=== PATIENT | female | born 1980 | race Caucasian/White ===

== ENCOUNTER 2017-03-27 06:30 | Inpatient (IN) | payer OTHER ==
[2017-03-27] MEDS: ELECTROLYTE-148 SOLN 1,000 ML IV SCH (07:00)
[2017-03-27] MEDS ORDERED: CITRIC ACID/SODIUM CITRATE 30 ML UNIT-DOSE CUP PO ONE (07:00)
[2017-03-27 07:51] LABS: MCH 29.8 pg (25.7-33.7); MCHC 33.8 g/dl (32.0-36.0); MEAN CELL VOLUME 88.1 fl (80-96); MEAN PLT VOLUME 8.1 fl (7.5-11.1); PLATELET COUNT 185 K/MM3 (134-434); RDW 14.7 % (11.6-15.6); WHITE BLOOD COUNT 12.4 K/mm3 (4.0-10.0)
[2017-03-27] MEDS ORDERED: oxyCODONE HCL 5 MG TABLET PO PRN ×2 (07:57)
[2017-03-27] MEDS ORDERED: ACETAMINOPHEN 325 MG TABLET (FP) PO PRN (07:57)
[2017-03-27] MEDS ORDERED: METHYLERGONOVINE MALEATE 0.2 MG/1 ML AMP IM PRN (07:57)
[2017-03-27] MEDS ORDERED: IBUPROFEN 600 MG TABLET (FP) PO PRN (07:57)
[2017-03-27] MEDS ORDERED: IBUPROFEN 800 MG/8 ML IJ IVPB PRN (07:57)
--- NOTE | 2017-03-27 08:09 | HP ---
Past Medical History - Admission Chief Complaint: painful contrations, vaginal bleeding History of Present Illness: 36 y/o with SIUP at 38.5 weeks gestation here with painful contractions and vaginal bleeding at home. Pt with history of prior delivery. otherwise uncomplicated. Patient declines TOLAC. GBS negative. HIV negative. No other issues. History Source: Patient, Medical Record Limitations to Obtaining History: No Limitations - Past Medical History [employer] CONSULTANT: No: Migraine, Seizure Cardiovascular: No: AFIB, HTN, [place] Pulmonary: No: Asthma Gastrointestinal: No: GERD, Irritable Bowel Disease Hepatobiliary: No: Hepatitis B Reproductive: No: PID, Polycystic Ovary Syndrome ...: 2 ...Para: 1 ...Term: 0 ...: 0 ...Spon : 0 ...Induced : 0 ...Multiple Gestation: 0 ... Weeks Gestation by Dates: 38.5 Heme/Onc: Yes: Anemia Infectious Disease: No: HIV, MRSA Psych: No: Anxiety, Bipolar, Depression Rheumatology: No: Rheumatoid Arthritis Endocrine: No: Diabetes Mellitus, Hyperthyroidism - Past Surgical History Past Surgical History: Yes: Hx Myomectomy: No Hx Transabdominal Cerclage: No - Smoking History Smoking history: Never smoked Have you smoked in the past 12 months: No - Alcohol/Substance Use Hx Alcohol Use: No - Social History Usual Living Arrangement: Yes: With Spouse ADL: Independent History of Recent Travel: No Home Medications - Allergies Allergies/Adverse Reactions: Allergies Allergy/AdvReac Type Severity Reaction Status Date / Time No Known Drug Allergies Allergy Verified 07/08/13 11:37 - Home Medications Home Medications: Ambulatory Orders Ibuprofen [Motrin -] 600 mg PO Q6H PRN #0 tablet 07/17/13 Oxycodone HCl/Acetaminophen [Percocet 5-325 mg Tablet -] 1 - 2 tab PO Q6H #20 tab 05/15/14 Acetaminophen [Tylenol .Regular Strength -] 650 mg PO Q4H PRN #0 tablet Review of Systems - Review of Systems Constitutional: reports: No Symptoms Eyes: reports: No Symptoms HENT: reports: No Symptoms Neck: reports: No Symptoms Cardiovascular: reports: No Symptoms Respiratory: reports: No Symptoms Gastrointestinal: reports: No Symptoms Genitourinary: reports: No Symptoms Breasts: reports: No Symptoms Reported Musculoskeletal: reports: No Symptoms Integumentary: reports: No Symptoms Neurological: reports: No Symptoms Endocrine: reports: No Symptoms Hematology/Lymphatic: reports: No Symptoms Psychiatric: reports: No Symptoms Physical Exam - Maternity Constitutional: Yes: Well Nourished, No Distress, Calm Eyes: Yes: Conjunctiva Clear, EOM Intact HENT: Yes: Atraumatic, Normocephalic Neck: Yes: Supple, Trachea Midline Cardiovascular: Yes: Regular Rate and Rhythm Lungs: Clear to auscultation - Abdominal Exam/OB Number of Fetuses: Single Presentation: Vertex Contractions: Yes Regularity: Irregular Intensity: Mild/Mod Category: I Accelerations: Uniform Decelerations: None - Vaginal Exam/OB Vaginal Bleediing: Yes Presentation: Vertex/Position - Physical Exam Edema: No Psychiatric: Yes: Alert, Oriented - Labs Lab Results: CBC, BMP 03/27/17 07:30 Hemorrhage Risk Assessment - Risk Factors Medium Risk Factors: Yes: Prior , uterine surgery,or multiple laparotomies High Risk Factors: Yes: Active bleeding on admission Risk Score: 3 Risk Level: High Risk Problem List - Problems (1) Vaginal bleeding Code(s): N93.9 - ABNORMAL UTERINE AND VAGINAL BLEEDING, UNSPECIFIED (2) Active labor at term Code(s): MAF7257 - (3) Term Code(s): Z34.80 - ENCOUNTER FOR SUPRVSN OF NORMAL , UNSP TRIMESTER Assessment/Plan 36 y/o with SIUP at 38.5 weeks here in labor, prior delivery - AFVSS - FHTs cat 1 - for repeat delivery - consents signed, anesthesia aware, nursing aware - NPO, SCDs, amezquita catheter
[2017-03-27 08:12] LABS: INR 0.95 (0.82-1.09); PROTHROMBIN TIME (PATIENT) 10.4 SEC (9.98-11.88)
[2017-03-27 08:14] LABS: ACTIVATED PTT 30.3 SECONDS (26.9-34.4)
[2017-03-27 08:19] LABS: CALCIUM 8.7 mg/dL (8.5-10.1); CREATININE 0.5 mg/dL (0.55-1.02)
[2017-03-27 08:22] VITALS: BMI 27.4
[2017-03-27 08:24] LABS: COCKROFT - GAULT 192.984
[2017-03-27] MEDS ORDERED: morphine SULFATE/Preservative Free 0.5 MG/ML (1cc Syringe) EP ONE (09:35)
[2017-03-27] MEDS ORDERED: ONDANSETRON 4 MG/2 ML VIAL IVPB PRN (09:35)
--- NOTE | 2017-03-27 09:42 | OP ---
Operative Note - Note: Operative Date: 03/27/17 Pre-Operative Diagnosis: prior delivery, labor at term, vaginal bleeding Operation: repeat low transverse section Findings: uterine window noted approx 1x1cm in size on bilateral sides of lower uterine segment partial placental abruption Surgeon: Tracy Childs Speech And Language Clinician: Edelmira Houston Anesthesiologist/INVOICING MACHINE OPERATOR: Jose Fried Anesthesia: Spinal Specimens Removed: placenta Estimated Blood Loss (mls): 600 Operative Report Dictated: Yes
[2017-03-27] MEDS ORDERED: TUBERCULIN PPD 5 TU/0.1ML SYRINGE (IN PATIENT USE ONLY) ID ONE (10:00)
[2017-03-27] MEDS: IBUPROFEN 800 MG/8 ML IJ IVPB PRN ×2 (10:30→18:00)
[2017-03-27] MEDS: OXYTOCIN 20 UNITS in 0.9% NS 1,000 ML IV SCH ×2 (10:31→16:46)
[2017-03-27 11:39] LABS: METAMYELOCYTE 1 % (0-2); PLATELET ESTIMATE ADEQUATE (NORMAL)
[2017-03-28] MEDS: IBUPROFEN 800 MG/8 ML IJ IVPB PRN ×2 (01:34→09:29)
[2017-03-28] MEDS ORDERED: BISACODYL 10 MG SUPP.RECT RC PRN (07:58)
[2017-03-28 08:58] LABS: BASOPHIL 0.2 % (0-2.0); EOSINOPHIL 0.6 % (0-4.5); MCH 29.2 pg (25.7-33.7); MEAN CELL VOLUME 88.3 fl (80-96); MEAN PLT VOLUME 8.1 fl (7.5-11.1); NEUTROPHILS 82.4 % (42.8-82.8); PLATELET COUNT 169 K/MM3 (134-434); RDW 14.7 % (11.6-15.6); WHITE BLOOD COUNT 16.7 K/mm3 (4.0-10.0)
[2017-03-28] MEDS: SIMETHICONE 80 MG TAB.CHEW (FP) PO PRN ×3 (09:30→21:26)
[2017-03-28] MEDS ORDERED: DIPHTH,PERTUSS(ACELL),TET 0.5 ML DISP.SYRIN IM ONE (10:00)
--- NOTE | 2017-03-28 10:30 | PN ---
Progress Note (SOAP) - Subjective Chief Complaint: Pt doing well able to sit up in bed - Current Medications Current Medications: Active Medications Acetaminophen (Tylenol -) 650 mg PO Q4H PRN PRN Reason: FEVER OR PAIN Bisacodyl (Dulcolax Suppository -) 10 mg RC PRN PRN PRN Reason: CONSTIPATION Diphenhydramine HCl (Benadryl Injection -) 25 mg IVPUSH Q4H PRN PRN Reason: Pruritis Oxytocin/Sodium Chloride (Normal Saline+20 Units Oxytocin -) 1,000 mls @ 125 mls/hr IV ASDIR [facility] Last Admin: 03/27/17 16:46 Dose: 125 mls/hr Parenteral Electrolytes (Plasma-Lyte 148 -) 1,000 mls @ 125 mls/hr IV ASDIR [facility] Last Admin: 03/27/17 07:00 Dose: 125 mls/hr Ibuprofen (Motrin -) 600 mg PO Q4H PRN PRN Reason: PAIN Ibuprofen (Caldolor Injection -) 600 mg IVPB Q8H PRN PRN Reason: FEVER Last Admin: 03/28/17 09:29 Dose: 600 mg Methylergonovine Maleate (Methergine Injection -) 0.2 mg IM Q4H PRN PRN Reason: Excessive Bleeding (L&D) Oxycodone HCl (Roxicodone -) 5 mg PO Q4H PRN PRN Reason: PAIN LEVEL 1-5 Oxycodone HCl (Roxicodone -) 10 mg PO Q4H PRN PRN Reason: PAIN LEVEL 6-10 Senna/Docusate Sodium (Pericolace -) 2 tablet PO HS PRN PRN Reason: CONSTIPATION Simethicone (Mylicon -) 80 mg PO Q4H PRN PRN Reason: GAS Last Admin: 03/28/17 09:30 Dose: 80 mg - Objective Vital Signs: Vital Signs Temperature 98.2 F 03/28/17 08:25 Pulse Rate 81 03/28/17 08:25 Respiratory Rate 18 03/28/17 09:56 Blood Pressure 97/59 03/28/17 08:25 O2 Sat by Pulse Oximetry (%) 100 03/27/17 10:15 Constitutional: Yes: Well Nourished, No Distress Cardiovascular: Yes: WNL Gastrointestinal: Yes: WNL, Normal Bowel Sounds, Soft ....Post : Yes: Uterus firm, Uterus non-tender Breast(s): Yes: WNL Musculoskeletal: Yes: WNL Extremities: Yes: WNL Integumentary: Yes: WNL Wound/Incision: Yes: Clean/Dry, Well Approximated, Steri Strips, Dressing Removed Neurological: Yes: WNL, Alert, Oriented Labs Lab Results: CBC, BMP 03/28/17 08:00 03/27/17 07:30 Problem List - Problems (1) Elevated WBC count Code(s): D72.829 - ELEVATED WHITE BLOOD CELL COUNT, UNSPECIFIED (2) Status post delivery Code(s): Z98.89 - OTHER SPECIFIED POSTPROCEDURAL STATES * DO NOT USE * Assessment/Plan POD 1 OOB elevated WBC start abs cbc in am
--- NOTE | 2017-03-28 14:02 | PN ---
Progress Note, Physician Chief Complaint: s/p c section under spinal anesthesia History of Present Illness: post op day one duramorph for post op pain control - Current Medication List Current Medications: Active Medications Acetaminophen (Tylenol -) 650 mg PO Q4H PRN PRN Reason: FEVER OR PAIN Bisacodyl (Dulcolax Suppository -) 10 mg RC PRN PRN PRN Reason: CONSTIPATION Diphenhydramine HCl (Benadryl Injection -) 25 mg IVPUSH Q4H PRN PRN Reason: Pruritis Oxytocin/Sodium Chloride (Normal Saline+20 Units Oxytocin -) 1,000 mls @ 125 mls/hr IV ASDIR [facility] Last Admin: 03/27/17 16:46 Dose: 125 mls/hr Parenteral Electrolytes (Plasma-Lyte 148 -) 1,000 mls @ 125 mls/hr IV ASDIR [facility] Last Admin: 03/27/17 07:00 Dose: 125 mls/hr Cefazolin Sodium (Ancef 1gm Ivpb (Pre-Docked)) 50 mls @ 100 mls/hr IVPB Q8H-IV [facility] Stop: 03/29/17 17:59 Ibuprofen (Motrin -) 600 mg PO Q4H PRN PRN Reason: PAIN Ibuprofen (Caldolor Injection -) 600 mg IVPB Q8H PRN PRN Reason: FEVER Last Admin: 03/28/17 09:29 Dose: 600 mg Methylergonovine Maleate (Methergine Injection -) 0.2 mg IM Q4H PRN PRN Reason: Excessive Bleeding (L&D) Oxycodone HCl (Roxicodone -) 5 mg PO Q4H PRN PRN Reason: PAIN LEVEL 1-5 Oxycodone HCl (Roxicodone -) 10 mg PO Q4H PRN PRN Reason: PAIN LEVEL 6-10 Senna/Docusate Sodium (Pericolace -) 2 tablet PO HS PRN PRN Reason: CONSTIPATION Simethicone (Mylicon -) 80 mg PO Q4H PRN PRN Reason: GAS Last Admin: 03/28/17 09:30 Dose: 80 mg - Objective Vital Signs: Vital Signs Temperature 98.2 F 03/28/17 08:25 Pulse Rate 81 03/28/17 08:25 Respiratory Rate 18 03/28/17 12:00 Blood Pressure 97/59 05/31/17 08:25 O2 Sat by Pulse Oximetry (%) 100 03/27/17 10:15 Constitutional: Yes: Well Nourished Cardiovascular: Yes: WNL Respiratory: Yes: WNL Gastrointestinal: Yes: WNL Labs: CBC, BMP 03/28/17 08:00 03/27/17 07:30 INR, PTT INR 0.95 (0.82-1.09) 03/27/17 07:30 Assessment/Plan no adverse effect from anesthetic, complaining of mild headache but it prone to headaches. This headache is of similar quality to other headaches, advised to inform a nurse if it becomes positional in nature. No nausea or vomiting, Pain is under control. dept of anesthesia will sign off care at this time. Please re consult if any concern for post dural puncture headache.
[2017-03-28] MEDS: CEFAZOLIN (PRE-DOCKED) 50 ML IVPB SCH (17:15)
[2017-03-28] MEDS: IBUPROFEN 600 MG TABLET (FP) PO PRN ×2 (17:22→21:25)
[2017-03-28] MEDS: ACETAMINOPHEN 325 MG TABLET (FP) PO PRN ×2 (17:22→21:25)
[2017-03-28] MEDS: SENNOSIDES/DOCUSATE COMBO (SENNA PLUS) TABLET (UD) PO PRN (21:26)
[2017-03-29] MEDS: CEFAZOLIN (PRE-DOCKED) 50 ML IVPB SCH ×2 (02:15→10:12)
--- NOTE | 2017-03-29 08:01 | PN ---
Post Progress Note - Subjective Subjective: Pt seen/evaluated and doing well. Pain controlled. Tolerating diet. Ambulating, voiding and passing flatus. VB minimal. Denies CP/SOB/F/C/HERNANDEZ. No other complaints/concerns. Type of Delivery: Repeat C/S Vital Signs: Vital Signs Temperature 97.8 F 03/28/17 22:00 Pulse Rate 84 03/28/17 22:00 Respiratory Rate 18 03/28/17 22:00 Blood Pressure 102/60 03/28/17 22:00 O2 Sat by Pulse Oximetry (%) 100 03/27/17 10:15 Breast Exam: Yes: Soft Uterus: Yes: Fundus below umbilicus Incision: Yes: Sutures intact Abdomen/GI: Yes: Abdomen soft, Passing flatus, Tolerating PO. No: Abdominal Distention, Tender Lochia: Yes: Rubra Lochia, amount: Small Extremities: Yes: Calves non-tender. No: Edema Perineum: Yes: Intact Activity: Ambulating - Labs Labs: CBC WBC 16.7 K/mm3 (4.0-10.0) H D 03/28/17 08:00 RBC 3.95 M/mm3 (3.60-5.2) 03/28/17 08:00 Hgb 11.5 GM/dL (10.7-15.3) 03/28/17 08:00 Hct 34.9 % (32.4-45.2) 03/28/17 08:00 MCV 88.3 fl (80-96) 03/28/17 08:00 MCHC 33.0 g/dl (32.0-36.0) 03/28/17 08:00 RDW 14.7 % (11.6-15.6) 03/28/17 08:00 Plt Count 169 K/MM3 (134-434) 03/28/17 08:00 MPV 8.1 fl (7.5-11.1) 03/28/17 08:00 Neutrophils % 82.4 % (42.8-82.8) 03/28/17 08:00 Lymphocytes % 9.0 % (8-40) 03/28/17 08:00 Monocytes % 7.8 % (3.8-10.2) 03/28/17 08:00 Eosinophils % 0.6 % (0-4.5) 03/28/17 08:00 Basophils % 0.2 % (0-2.0) 03/28/17 08:00 Band Neutrophils 1.0 % (0-10) D 03/27/17 07:30 Metamyelocytes 1 % (0-2) 03/27/17 07:30 Myelocytes 2 % (0-2) D 03/27/17 07:30 Differential Comment Manual diff done 03/27/17 07:30 Reactive Lymphocytes 2 % (0-80) 03/27/17 07:30 Platelet Estimate Adequate (NORMAL) 03/27/17 07:30 Problem List - Problems (1) Vaginal bleeding Code(s): N93.9 - ABNORMAL UTERINE AND VAGINAL BLEEDING, UNSPECIFIED (2) Active labor at term Code(s): NVZ5268 - (3) Term Code(s): Z34.80 - ENCOUNTER FOR SUPRVSN OF NORMAL , UNSP TRIMESTER (4) delivery delivered Code(s): O82 - ENCOUNTER FOR DELIVERY WITHOUT INDICATION Assessment/Plan 36 y/o POD#2 s/p repeat delivery - AFVSS - Hgb 11.5 post op, pt stable - regular diet, PO pain meds, encourage ambulation - routine post op care
[2017-03-29] MEDS: ACETAMINOPHEN 325 MG TABLET (FP) PO PRN ×2 (08:40→14:34)
[2017-03-29] MEDS: IBUPROFEN 600 MG TABLET (FP) PO PRN ×2 (08:40→14:33)
[2017-03-29] MEDS: SIMETHICONE 80 MG TAB.CHEW (FP) PO PRN (08:40)
--- NOTE | 2017-03-29 08:45 | OP ---
DATE OF OPERATION: 03/27/2017 PREOPERATIVE DIAGNOSES: Prior delivery, active labor at full term, vaginal bleeding, suspect partial abruption. POSTOPERATIVE DIAGNOSES: Prior delivery, active labor at full term, vaginal bleeding, suspect partial abruption, with confirmed partial placental abruption. PROCEDURE: Repeat low-transverse section. SURGEON: Tracy Childs DO FISHING GEAR MECHANIC: Edelmira Houston MD ANESTHESIA: Spinal by Bell Fried MD COMPLICATIONS: None. FINDINGS: Included uterine window noted bilaterally in the lower uterine segment approximately 1 x 1 cm in size bilaterally and partial placental abruption. SPECIMENS REMOVED: Included placenta. ESTIMATED BLOOD LOSS: 600 mL. COUNTS: Sponge, needle, and instrument count correct. DISPOSITION: Stable to recovery room. BRIEF HISTORY AND PROCEDURE: Patient is a 36-year-old female who arrived to labor and delivery on the morning of March 27, 2017, with complaints of painful contractions and vaginal bleeding. The patient had a prior section and had declined trial of labor after . The patient was admitted to [facility] on that morning and prepped for a repeat section. The patient was then taken back to the operating room, where she was given spinal anesthesia by Dr. Fried without difficulty. She was then placed on the operating room table and a Chang catheter was placed under sterile conditions. She was prepped and draped in the dorsal supine position and a hard timeout was performed. A Pfannenstiel skin incision was created in the skin with a scalpel and carried to the underlying layer of rectus fascia with the Bovie. The rectus fascia was incised on either side of the midline with the Bovie and the fascial incision was carried in a superolateral direction with the Bovie. The fascia was tented upward and dissected off the underlying layer of rectus muscle with the Bovie. The rectus muscle was laterally in the midline and the peritoneum was carefully dissected to allow for adequate room for delivery. A bladder blade was then inserted. A transverse incision was created in the lower uterine segment which was extended bluntly in a superolateral direction toward the round ligaments. The infant was then delivered from the right occiput transverse position. The bilateral shoulders and remainder of the delivered with ease. The cord was clamped twice and cut in between. The infant was taken over to the warmer to be assessed by the neonatology staff where it received scores of 9 and 9. The placenta was then delivered manually and intact. The uterus was exteriorized from the abdomen, inspected, and cleared of all debris with a dry lap sponge. Hysterotomy was reapproximated in a double-layer closure using 1st Vicryl suture in a running locked fashion, then 0 Biosyn suture in a running locked fashion. Excellent hemostasis was achieved. Bilateral tubes and ovaries were inspected and noted to be normal. The posterior cul-de-sac was suctioned and the uterus was placed back into the abdomen. Bilateral gutters were inspected and cleared of all blood clot and debris. The hysterotomy was again noted to be hemostatic. The peritoneal layer was then reapproximated using chromic in a running fashion. The musculature was reapproximated in several interrupted sutures using 0 Biosyn. The fascial layer was reapproximated using 1 Vicryl suture in a running fashion. The subcutaneous tissue was irrigated. Any bleeding was cauterized with the Bovie device. The subcutaneous tissue was reapproximated in interrupted sutures using Vicryl suture and the skin was reapproximated using 3-0 Vicryl in a subcuticular fashion. Steri-Strips were applied. The patient tolerated the procedure well. Sponge, needle, and instrument count was reported to be correct. The patient was recovering in stable condition in the PACU after the procedure without incident. TRACY CHILDS DO /[id number]
[2017-03-29] MEDS ORDERED: FERROUS GLUCONATE 256 MG PO SCH (10:00)
[2017-03-29] MEDS: ELECTROLYTE-148 SOLN 1,000 ML IV SCH (11:35)
[2017-03-29] MEDS: OXYTOCIN 20 UNITS in 0.9% NS 1,000 ML IV SCH (11:36)
[2017-03-29] MEDS ORDERED: FERROUS GLUCONATE 324 MG TAB (FP) PO SCH (14:18)
[2017-03-29] MEDS: SENNOSIDES/DOCUSATE COMBO (SENNA PLUS) TABLET (UD) PO PRN (22:14)
[2017-03-30] MEDS: ACETAMINOPHEN 325 MG TABLET (FP) PO PRN ×2 (05:03→11:24)
[2017-03-30] MEDS: IBUPROFEN 600 MG TABLET (FP) PO PRN ×2 (05:04→11:22)
[2017-03-30 07:54] LABS: BASOPHIL 0.2 % (0-2.0); EOSINOPHIL 3.1 % (0-4.5); MCH 29.4 pg (25.7-33.7); MCHC 33.7 g/dl (32.0-36.0); MEAN CELL VOLUME 87.3 fl (80-96); MEAN PLT VOLUME 7.8 fl (7.5-11.1); NEUTROPHILS 73.5 % (42.8-82.8); PLATELET COUNT 176 K/MM3 (134-434); RDW 14.5 % (11.6-15.6)
[2017-03-30 08:31] VITALS: BP 103/68; PULSE 78; TEMP 97.5
--- NOTE | 2017-03-30 08:47 | DS ---
Physical Exam-SHADOWGRAPH SCALE OPERATOR Vital Signs: Vital Signs Temperature 97.5 F L 03/30/17 08:00 Pulse Rate 78 03/30/17 08:00 Respiratory Rate 16 03/30/17 08:00 Blood Pressure 103/68 03/30/17 08:00 O2 Sat by Pulse Oximetry (%) 100 03/27/17 10:15 Labs: CBC, BMP 03/30/17 06:30 03/27/17 07:30 Delivery - Delivery Type of Anesthesia: Spinal Episiotomy/Laceration: None EBL (cc): 600 Delivery, Single - Stages of Labor Date 1st Stage Initiatied: 03/27/17 Time 1st Stage Initiated: 00:00 Date of Delivery: 03/27/17 Time of Delivery: 08:37 Date Placenta Delivered: 03/27/17 Time Placenta Delivered: 08:38 Placenta: Yes: Manual Removal - Condition of Notching Machine Operator/Auditor/Quality Present: Yes Name: Lary Ballard Gender: Female Weight: 7 lb 8 oz Position: Right, OT Total Hours ROM (Hrs/Mins): 2 min - 1 Minute Total Score: 9 5 Minutes Total Score: 9 - Feeding Plan Initial Plan: Elected not to breastfeed exclusively throughout hospitalization Discharge Summary Reason For Visit: SCHEDULED Current Active Problems Active labor at term (Acute) delivery delivered (Acute) Term (Acute) Vaginal bleeding (Acute) Procedures: Principal: repeat delivery Hospital Course: Patient admitted on the morning of 03/27/17 with complaints of abdominal pain, contractions and vaginal bleeding. The patient had a history of a prior delivery and was therefore admitted and underwent a repeat delivery for labor and suspected abruption. The patient had an uncomplicated delivery (please see operative note for full details). The patient underwent a normal post op/post recovery and was discharged home in stable condition on post operative day 3. Condition: Good - Instructions Diet, Activity, Other Instructions: Physical activity Resume your normal everyday activity as tolerated but no heavy lifting or strenuou exercise until seen by your surgeon. You may walk unlimited amounts and climb stairs. You may resume driving the car when you feel safe and comfortable behind the wheel. No sexual activity as instructed. Wound care If there are tapes on the skin under leave them in place. They will peel off in the next 7 to 10 days. Do Not Peel them off. You may shower the day after surgery. If there are tapes present on the skin, you may shower over them. Diet There are no dietary restrictions. Eat healthy, high-fiber foods. Drink 6 to 8 glasses of liquid each day. This will assist in keeping your bowels regular. Pain management You may take Tylenol = or Ibuprofen (for example, Motrin, Advil etc.) for mild pain. If any narcotic pain medication is ordered, it should be taken as prescribed for moderate to severe pain. Call MD for any of the following: Severe pain not relieved by medication Fever of 101 or higher Excessive bleeding or drainage on dressing Inability to urinate Referrals: Tracy Childs DO [Staff Physician] - 1 Week Disposition: HOME - Home Medications Comprehensive Discharge Medication List: Ambulatory Orders Ferrous Gluconate [Iron] 256 mg PO DAILY 03/27/17 Vit No.130/Iron/FA [ Vitamins] 1 each PO DAILY 03/27/17
[2017-03-30] MEDS ORDERED: PRENATAL VITAMINS W/ FOLIC ACID TABLET (FP) PO SCH (10:00)
[2017-03-30] MEDS: SIMETHICONE 80 MG TAB.CHEW (FP) PO PRN (11:28)
--- NOTE | 2017-04-03 16:25 | PATH ---
Surgical Pathology Report Patient Name: LEANDER BACON Med. Rec. #: [id number] /Age/Gender: 1980 (Age: 36) / F Account: [id number] Location: [facility] OBS/ALCOHOLISM WORKER Taken: 03/27/2017 Received: 03/28/2017 Reported: 04/03/2017 Physicians: Tracy Childs M.D. Specimen(s) Received PLACENTA Clinical History , c/section 05/13/14, partial abruption noted Repeat c/section, vaginal bleeding in labor Final Diagnosis PLACENTA, DELIVERY: FOCALLY DISRUPTED THIRD TRIMESTER PLACENTA WITH CLINICAL HISTORY OF PARTIAL ABRUPTION, FOCAL VILLOUS DYSMATURITY, MILD PREVILLOUS, PERIVILLOUS, AND PRECHORIONIC FIBRIN DEPOSITION, THREE VESSEL UMBILICAL CORD, AND PLACENTAL MEMBRANES FOCAL ACUTE CHORIOAMNIONITIS, ACUTE INFLAMMATION OF CHORIONIC PLATE AND AMNION HYPERPLASIA. Electronically Signed Andrea Danielson M.D. Gross Description The specimen is received fresh, labeled "placenta" and is a 502 gram, 20.0 x 18.0 x 2.1 cm placenta with attached membranes and umbilical cord. The attached membranes are goodwin, translucent with focal opacities and insert marginally. The umbilical cord measures 24 cm in length and averages 1.1 cm in diameter. The cord inserts centrally. No true knots or strictures are identified. Cut surface of the umbilical cord reveals 3 vessels. The surface is coulter-blue with fibrin deposition and appropriate caliber vessels. The maternal surface is red-brown with focal defects. Sectioning reveals red-brown, spongy parenchyma. No focal lesions are identified. Drawbench Operator sections are submitted in three cassettes as follows: 1- membrane rolls and umbilical cord; 2-3- full thickness sections of placenta. 04/02/2017 [facility]04/02/2017
== END 2017-03-30 12:40 | disposition home or self-care (01) | DRG 766 ==
LOC: JLDR 06:30 → J3W 10:59
PROVIDERS: ADMIT Obstetrics & Gynecology; ATTEND Obstetrics & Gynecology
PROC: 10D00Z1 Extraction of Products of Conception, Low, Open Approach (ICD-10-PCS; principal; 2017-03-27)
DX: O45.8X3 Other premature separation of placenta, third trimester (principal); O67.8 Other intrapartum hemorrhage; O34.211 Maternal care for low transverse scar from previous cesarean delivery; Z3A.38 38 weeks gestation of pregnancy; Z37.0 Single live birth
CPT/HCPCS: 36415; 80048; 85025; 85610; 85730; 86593; 86850; 86900; 86901; 88307-TC; 90715